=== PATIENT | male | born 1990 | race African-American/Black ===

== ENCOUNTER 2021-01-12 20:13 | Emergency (ER) | payer OTHER ==
[2021-01-12 21:21] LABS: BASOPHIL 0.3 % (0-2); EOSINOPHIL 0.1 % (0-5); HCT 42.2 % (42.0-52.0); HGB 14.4 g/dl (13.2-18.0); LYMPHOCYTE 16.1 % (15-48); MCH 31.1 pg (25.0-31.0); MCHC 34.1 g/dL (32.0-36.0); MCV 91.1 fL (78.0-100.0); MONOCYTE 3.4 % (0-12); MPV 9.8 fL (6.0-9.5); NEUTROPHIL 79.6 % (41-80); NRBC 0; PLT 252 K/uL (150-400); RBC 4.63 M/uL (4.70-6.00); RDW 13.3 % (11.5-14.0); WBC 9.5 K/uL (4.0-10.5)
[2021-01-12 21:40] LABS: BILIRUBIN NEGATIVE (NEGATIVE); BLOOD NEGATIVE Ery/uL (NEGATIVE); CLARITY CLEAR (CLEAR); COLOR YELLOW (YELLOW); GLUCOSE (U) NORMAL (NORMAL); LEUKOCYTES TRACE Leu/uL (NEGATIVE); NITRITE POSITIVE (NEGATIVE); PROTEIN NEGATIVE (NEGATIVE); UROBILINOGEN 0.2 mg/dL (0.2-1.0); pH 7.5 (5.0-9.0)
[2021-01-12 21:46] LABS: BACTERIA 3+; URINARY WBC 20-50
[2021-01-12 21:49] LABS: ALBUMIN 4.8 g/dL (3.4-5.0); BILIRUBIN - TOTAL 0.3 mg/dL (0.2-1.0); BUN/CREAT RATIO (CALC) 9.4 RATIO; CREATININE 1.17 mg/dL (0.67-1.17); TOTAL PROTEIN 8.8 g/dL (6.4-8.2)
[2021-01-12] MEDS ORDERED: CYCLOBENZAPRINE10 MG PO (22:30)
[2021-01-12] MEDS ORDERED: MEDROL 4MG DOSEP4 MG PO (22:30)
[2021-01-12] MEDS ORDERED: IBUPROFEN800 MG PO (22:30)
[2021-01-12] MEDS ORDERED: VIBRAMYCIN100 MG PO (22:30)
[2021-01-12] MEDS ORDERED: NORCO 5-325 TA1 EACH PO (22:43)
[2021-01-19 22:08] LABS: CHLAMYDIA TRACHOMATIS, NAA Negative (Negative); NEISSERIA GONORRHOEAE, NAA Negative (Negative)
== END 2021-01-12 23:15 | disposition home or self-care (01) ==
LOC: FER 20:13
PROVIDERS: Emergency Medicine Emergency Medical Services
DX: S16.1XXA Strain of muscle, fascia and tendon at neck level, initial encounter (principal); S00.83XA Contusion of other part of head, initial encounter; N39.0 Urinary tract infection, site not specified; V48.5XXA Car driver injured in noncollision transport accident in traffic accident, initial encounter; Y92.410 Unspecified street and highway as the place of occurrence of the external cause
CPT/HCPCS: 36415; 70450; 71250; 72125; 72128; 72131; 80053; 81001; 83605; 83690; 84484; 85025; 87076; 87088; 87186; 87491; 87591; 96372; J0696; J1885